=== PATIENT | male | born 1930 | race Caucasian/White ===

== ENCOUNTER 2017-01-03 18:17 | Inpatient (IN) | payer OTHER, MEDICARE ==
[~2017-01-03] VITALS: Ht 177.8 cm; Wt 74.3 kg
--- NOTE | ~2017-01-03 | CATHLAB ---
[facility] [address] [place] [address] INVASIVE PROCEDURE REPORT Name: ROB LARSON Room #: 206-P [facility] IN .R.#: [id number] Admission: 01/04/17 Attend Phys: Puma Contreras MD Discharge: Date of : 32 Date of Service: 01/05/17 1324 Report #: [id number] THIS REPORT FOR: //name// APPROVED REPORT Patient Details The patient is a 86 year-old male Event Personnel Efren Duong Vocational Nurse Procedures Performed Art Access - R femoral artery* , Selective Right and Left Coronary Angiography, Hemostasis w/ Mynx Indication Chest pain, SSS Risk Factors Arterial Hypertension, male gender, age, Previous Procedures/Diagnoses dual chamber pacer Procedure Narrative The patient was brought electively to the Cardiac Catheterization Laboratory and was prepped and draped in a sterile manner. The Right Groin^ was infiltrated with 1% Lidocaine subcutaneous anesthesia. The right femoral accessed via ultrasound guidance. A BRITE TIP 6FR X 23CM Sheath #[id number] sheath was inserted into the RFA^. Coronary angiography was performed using coronary diagnostic catheters. The right coronary system was accessed and visualized with a JR4 catheter. The left coronary system was accessed and visualized with a JL4 catheter. The left ventricle was accessed and visualized with a 5FR PIG 145 ANGLED #[id number] catheter. Pre-demployment femoral angiogram was performed which demonstrated adequate for closure. Closure device was deployed with a 6 Fr MYNXGRIP 6/7F #[id number]. The patient tolerated the procedure well and there were no complications associated with the procedure. There was no hematoma. Intraoperative Conscious Sedation Sedation start time: 14.52 Case end Time: 15:18 Versed 2 mg [facility] [address] [place] [address] INVASIVE PROCEDURE REPORT Name: NEOROB Paul Room #: 206-P [facility] IN [facility]#: [id number] Admission: 01/04/17 Attend Phys: Puma Contreras MD Discharge: Date of : 32 Date of Service: 01/05/17 1324 Report #: [id number] Fluoro Time: 12.00 minutes Dose: DAP 7972.98 cGycm2 Contrast Type and Amount: Omnipaque 40 ml Coronary Angiography The patient's coronary anatomy is left dominant. [place] Artery Percent Stenosis Left Main: 10 % Prox LAD: % Mid/Distal LAD: 50 % Circumflex: 25 % RCA: 60 % Ramus: % Diagnostic Cath Left Main normal origin without hemiodynamic significant lesion LAD moderaste caliber type 3 vessel with mild-moderate prox-mid eccentric non flow limiting lesion of -50% Circumflex moderate to large caliber dominant vessel with mild luminal irregularities present Right Coronary moderate caliber nondominant vessel of superior anterior origin with mild luminal irregularities Left Ventriculography Left Ventriculography was not performed. Hemodynamics The aortic pressure is 192/100 mmHg with a mean of 137 mmHg. Conclusion 1. CORONARY ARTERY DISEASE, MODERATE 2 VESSEL 2. ABNORMAL HEMODYNAMICS WITH ELEVATED PERIPHERAL SYSTOLIC PRESSURE 3. RECOMMEND OPTIMIZATION OF MEDICAL MANAGEMENT Recommendations Daily ASA with Plavix for at least one year Cardiac Risk Reduction Program Aggressive Medical Therapy <ELECTRONICALLY SIGNED> By: Efren Duong MD 01/05/17 1324 1324 1324 Efren Duong MD /INF
--- NOTE | ~2017-01-03 | EKG ---
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
--- NOTE | ~2017-01-03 | 2DMMODE ---
[facility] [address] [facility] [place] [address] 2 D/M-MODE ECHOCARDIOGRAM Name: NEOROB Room #: 206-P ADM IN ..#: [id number] Admission: 01/03/17 Attend Phys: Puma Contreras MD Discharge: Date of : 32 Date of Service: 01/04/17 1001 Report #: [id number] THIS REPORT FOR: //name// APPROVED REPORT Study performed: 01/04/2017 08:24:48 EXAM: Comprehensive 2D, Doppler, and color-flow Echocardiogram Patient Location: Echo lab Room #: 206 Status: routine Other Information Study Quality: Good Indications Dyspnea Chest Pain PM 2D Dimensions RVDd: 48.27 mm LVEF(%): 46.84 (>50%) IVSd: 9.59 (7-11mm) LVOT Diam: 20.55 (18-24mm) LVDd: 47.60 mm PWd: 11.91 (7-11mm) Ascending Ao: 41.49 (22-36mm) LVDs: 36.45 (25-40mm) Aortic Root: 31.12 mm Ascencio's LVEF: 46.84 % Volumes Left Atrial Volume (Systole) Single Plane 4CH: 51.56 mL Single Plane 2CH: 61.90 mL LA ESV Index: 36.00 mL/m2 Mitral Valve E/A Ratio: 1.2 MV Decel. Time: 329.01 ms MV E Max Arnold.: 0.70 m/s MV A Arnold.: 0.59 m/s MV PHT: 95.41 ms IVRT: 110.73 ms Pulmonary Valve PV Peak Arnold.: 0.90 m/s PV Peak Gr.: 3.27 mmHg [facility] [email or web address] [place] [address] 2 D/M-MODE ECHOCARDIOGRAM Name: ROB LARSON Room #: 206-[facility] IN [facility]#: [id number] Admission: 01/03/17 Attend Phys: Puma Contreras MD Discharge: Date of : 32 Date of Service: 01/04/17 1001 Report #: [id number] Pulmonary Vein P Vein S: 0.53 m/s P Vein A: 0.32 m/s P Vein D: 0.51 m/s P Vein A Dur.: 115.3 msec P Vein S/D Ratio: 1.04 Tricuspid Valve TR Peak Arnold.: 3.18 m/s RAP Estimate: 5.00 mmHg TR Peak Gr.: 40.00 mmHg RVSP: 0.00 mmHg PA Pressure: 45.00 mmHg Shunt Evaluation QP/QS: 0.00 Left Ventricle The left ventricle is normal size. There is normal LV segmental wall motion. There is normal left ventricular wall thickness. The left ventricular systolic function is normal. The left ventricular ejection fraction is within the normal range. LVEF is 50-55%. Right Ventricle The right ventricle is normal size. The right ventricular systolic function is normal. Pacemaker lead is present in the right ventricle. Atria Left atrium is at the upper limits of normal. Right atrium is dilated. Aortic Valve Aortic valve is calcified with focal density noted clinical correlation suggested. Trace aortic regurgitation. There is no aortic valvular stenosis. Mitral Valve The mitral valve is normal in structure. Trace to mild mitral regurgitation. No evidence of mitral valve stenosis. Tricuspid Valve The tricuspid valve is normal in structure. There is trace to mild tricuspid regurgitation. The right atrial pressure is estimated at 5 mmHg. There is moderate pulmonary hypertension with an estimated PAP of 45 mmHg. Pulmonic Valve The pulmonary valve is normal in structure. Trace pulmonic regurgitation. [facility] [address] [place] [address] 2 D/M-MODE ECHOCARDIOGRAM Name: ROB LARSON Room #: 206-P [facility] IN .#: [id number] Admission: 01/03/17 Attend Phys: Puma Contreras MD Discharge: Date of : 32 Date of Service: 01/04/17 1001 Report #: [id number] Great Vessels The aortic root is normal in size. The ascending aorta is normal in size. IVC is normal in size and collapses >50% with inspiration. Pericardium There is no pericardial effusion. <Conclusion> The left ventricle is normal size. The left ventricular systolic function is normal. The left ventricular ejection fraction is within the normal range. LVEF is 50-55%. Left atrium is at the upper limits of normal. Right atrium is dilated. Aortic valve is calcified with focal density noted clinical correlation suggested. Trace aortic regurgitation. The mitral valve is normal in structure. Trace to mild mitral regurgitation. The tricuspid valve is normal in structure. There is trace to mild tricuspid regurgitation. The right atrial pressure is estimated at 5 mmHg. There is moderate pulmonary hypertension with an estimated PAP of 45 mmHg. The pulmonary valve is normal in structure. Trace pulmonic regurgitation. <ELECTRONICALLY SIGNED> By: Efren Duong MD 01/04/17 1001 1001 1001 Efren Duong MD /INF
--- NOTE | ~2017-01-03 | EKG ---
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 : 1930 Requested By: Puma Contreras Order Number: [id number] MD: Ferdinand Good Measurements Intervals [place] Rate: 62 P: CT: 146 QRS: -42 QRSD: 98 T: 16 QT: 436 QTc: 443 Interpretive Statements Atrial-paced complexes Left ventricular hypertrophy Compared to ECG 01/03/2017 18:25:18 Left ventricular hypertrophy now present Electronically Signed On 01-07-2017 8:46:48 CDT by Ferdinand Good [email or web address] <ELECTRONICALLY SIGNED> By: Ferdinand Good MD, [facility] 01/07/17 0846 1210 1210 Ferdinand Good MD, [facility] /EPI
[2017-01-03 18:58] VITALS: BP 181/94
[2017-01-03 19:19] LABS: ABSOLUTE NEUTROPHILS 3.1 thou/uL (1.4-8.2); BASOPHILS 0.6 % (0.0-2.0); EOSINOPHILS 2.5 % (0.0-3.0); HEMATOCRIT 31.9 % (42.0-52.0); HEMOGLOBIN 10.7 gm/dL (14.0-18.0); LYMPHOCYTES 18.1 % (24.0-44.0); MCH 32.6 pg (26.0-34.0); MCHC 33.5 g/dL (28.0-37.0); MCV 97.3 fL (80.0-100.0); MONOCYTES 10.6 % (1.0-8.0); PLATELET COUNT 109 thou/uL (150-400); POLYS 68.2 % (36.0-66.0); RBC 3.28 mil/uL (4.50-6.00); RDW 14.1 % (10.5-14.5); WBC 4.6 thou/uL (4.0-11.0)
[2017-01-03 19:20] LABS: MANUAL DIFF NO
[2017-01-03 19:27] LABS: ANION GAP 4 mmol/L (7-16); BUN 19 mg/dL (7-18); CALCIUM 8.9 mg/dL (8.5-10.1); CHLORIDE 106 mmol/L (98-107); CO2 33 mmol/L (21-32); GLUCOSE 163 mg/dL (74-106); POTASSIUM 3.4 mmol/L (3.5-5.1); SODIUM 143 mmol/L (136-145)
[2017-01-03 19:39] LABS: NT-PRO BRAIN NAT PEPTIDE 1147 pg/mL (<300); TROPONIN-I < 0.04 ng/mL (<0.04-0.07)
[2017-01-03] MEDS ORDERED: ALLER-FLO15.8 ML NASAL (21:57)
[2017-01-03] MEDS ORDERED: ASPIR 8181 MG PO (21:58)
[2017-01-03] MEDS ORDERED: MIDODRINE HCL 55 M1 PO (22:00)
[2017-01-03] MEDS ORDERED: MYRBETRIQ50 MG PO (22:01)
[2017-01-03] MEDS ORDERED: PRAVACHOL20 MG PO (22:01)
[2017-01-03] MEDS ORDERED: TYLENOL325 MG PO (22:02)
[2017-01-03] MEDS ORDERED: RESTASIS1 EACH OPHTHALMIC (22:03)
[2017-01-03] MEDS ORDERED: REFRESH CLASSI1 EACH OP (22:04)
[2017-01-03] MEDS ORDERED: FLUDROCORTISON0.1 MG PO (22:05)
[2017-01-03 23:27] VITALS: BP 185/100
[2017-01-03 23:54] VITALS: BP 199/102
[2017-01-03 23:55] VITALS: BP 199/102; BP 213/105
[2017-01-04 02:20] VITALS: BP 174/89; BP 182/87
[2017-01-04 04:31] VITALS: BP 149/94
[2017-01-04 07:27] VITALS: BP 173/102
[2017-01-04 11:29] VITALS: BP 163/90
[2017-01-04 13:12] LABS: CHOLESTEROL 146 mg/dL (<200); HDL CHOLESTEROL 61 mg/dL (>40); LDL CHOLESTEROL 76 mg/dL (<100); TC:HDL 2.4 Ratio (Not establshd); TRIGLYCERIDE 46 mg/dL (<150); VLDL 9 mg/dL (<40)
[2017-01-04 19:19] VITALS: BP 197/109
[2017-01-04 21:15] VITALS: BP 150/88; BP 151/96
[2017-01-05 04:02] VITALS: BP 161/100
[2017-01-05 07:30] VITALS: BP 164/78
[2017-01-05 11:50] VITALS: BP 125/87
[2017-01-05 16:20] VITALS: BP 159/88
[2017-01-05 19:43] VITALS: BP 150/88
[2017-01-06] VITALS (8 sets, daily range): BP systolic 111–157; BP diastolic 62–89
[2017-01-06 04:45] LABS: ABSOLUTE NEUTROPHILS 4.6 thou/uL (1.4-8.2); BASOPHILS 0.3 % (0.0-2.0); EOSINOPHILS 2.7 % (0.0-3.0); HEMATOCRIT 32.9 % (42.0-52.0); LYMPHOCYTES 14.9 % (24.0-44.0); MCHC 33.4 g/dL (28.0-37.0); MCV 95.9 fL (80.0-100.0); MONOCYTES 10.3 % (1.0-8.0); PLATELET COUNT 124 thou/uL (150-400); POLYS 71.8 % (36.0-66.0); RBC 3.43 mil/uL (4.50-6.00); RDW 13.9 % (10.5-14.5); WBC 6.4 thou/uL (4.0-11.0)
[2017-01-06 04:52] LABS: CALCIUM 8.7 mg/dL (8.5-10.1); CREATININE 0.9 mg/dL (0.7-1.3); POTASSIUM 3.4 mmol/L (3.5-5.1)
[2017-01-06 04:58] LABS: MANUAL DIFF NO
[2017-01-06 05:41] LABS: LARGE PLATELETS RARE
[2017-01-07 04:30] VITALS: BP 136/77
[2017-01-07 07:25] VITALS: BP 148/77
[2017-01-07 08:39] LABS: FOLIC ACID 18.3 ng/mL (8.6-58.9); TSH 2.995 uIU/mL (0.358-3.740)
[2017-01-07] MEDS ORDERED: CARVEDILOL12.5 MG PO (10:20)
[2017-01-07] MEDS ORDERED: LISINOPRIL5 MG PO (10:20)
[2017-01-07 11:20] VITALS: BP 135/70
[2017-01-07 14:35] VITALS: BP 126/76
[2017-01-07 19:36] VITALS: BP 151/85
[2017-01-08 00:29] VITALS: BP 139/67
[2017-01-08 03:28] VITALS: BP 153/90
[2017-01-08 07:40] VITALS: BP 143/74
[2017-01-08 11:30] VITALS: BP 123/69
[2017-01-09 22:10] LABS: ALPHA TOCOPHEROL 8.8 mg/L (5.3-17.5)
== END 2017-01-08 14:28 | DRG 286 ==
LOC: ER 18:17 → EROBS 22:07 → 2N 23:29
PROVIDERS: Internal Medicine; Nurse Practitioner; Nurse Practitioner Gerontology; Psychiatry & Neurology Neurology
PROC: 4A023N7 Measurement of Cardiac Sampling and Pressure, Left Heart, Percutaneous Approach (ICD-10-PCS; principal; 2017-01-05)
PROC: B2111ZZ Fluoroscopy of Multiple Coronary Arteries using Low Osmolar Contrast (ICD-10-PCS; principal; 2017-01-05)
DX: I25.10 Atherosclerotic heart disease of native coronary artery without angina pectoris (principal); G93.41 Metabolic encephalopathy; E86.0 Dehydration; I10 Essential (primary) hypertension; E78.5 Hyperlipidemia, unspecified; Z96.89 Presence of other specified functional implants; G89.29 Other chronic pain; M54.9 Dorsalgia, unspecified; E78.00 Pure hypercholesterolemia, unspecified; Z88.8 Allergy status to other drugs, medicaments and biological substances; Z88.6 Allergy status to analgesic agent; Z79.82 Long term (current) use of aspirin; Z87.01 Personal history of pneumonia (recurrent); Z79.899 Other long term (current) drug therapy; Z87.891 Personal history of nicotine dependence
CPT/HCPCS: 10081

== ENCOUNTER 2017-01-11 13:06 | Emergency (ER) | payer OTHER, MEDICARE ==
[~2017-01-11] VITALS: Ht 175.3 cm; Wt 74.8 kg
[~2017-01-11 13:06] MED LIST: ALLER-FLO15.8 ML NASAL; ASPIR 8181 MG PO; CARVEDILOL12.5 MG PO; FLUDROCORTISON0.1 MG PO; LISINOPRIL5 MG PO; MIDODRINE HCL 55 M1 PO; MYRBETRIQ50 MG PO; PRAVACHOL20 MG PO; REFRESH CLASSI1 EACH OP; RESTASIS1 EACH OPHTHALMIC; TYLENOL325 MG PO
== END 2017-01-11 14:16 | disposition home or self-care (01) ==
LOC: ER 13:06
DX: G89.18 Other acute postprocedural pain (principal); M79.651 Pain in right thigh; F10.99 Alcohol use, unspecified with unspecified alcohol-induced disorder; Z98.890 Other specified postprocedural states; Z90.89 Acquired absence of other organs; Z95.0 Presence of cardiac pacemaker; Z88.8 Allergy status to other drugs, medicaments and biological substances